=== PATIENT | male | born 1990 ===

== ENCOUNTER 2021-05-06 15:03 | Emergency (ER) | payer SELFPAY ==
[2021-05-06 15:08] VITALS: BP 153/98; PULSE 91; RESP 18; TEMP 36.7; O2SAT 100
--- NOTE | 2021-05-06 17:00 | PC.NURSE ---
Not in [place]
--- NOTE | 2021-05-06 17:16 | PC.NURSE ---
Not in [place]
== END 2021-05-06 19:19 | disposition left against medical advice (07) ==
LOC: ANHED 18:55
DX: Z53.21 Procedure and treatment not carried out due to patient leaving prior to being seen by health care provider (principal)
CPT/HCPCS: 99199